=== PATIENT | female | born 1960 | race Caucasian/White ===

== ENCOUNTER → 2018-09-06 | Outpatient (CLI) | payer OTHER ==
[~2018-09-06] MED LIST: BACTRIM DS TAB1 EACH PO; BINOSTO70 MG PO; GENTAMICIN OPH3.5 G1 OPHTHALMIC; KEFLEX500 M1 PO; LIPITOR10 MG PO; PRINIVIL20 MG PO
[2018-09-06 09:03] LABS: CALCIUM 10.5 mg/dL (8.5-10.1); MAGNESIUM 1.9 mg/dL (1.8-2.4); PHOSPHORUS* 3.6 mg/dL (2.5-4.9); POTASSIUM 4.2 mmol/L (3.5-5.1)
[2018-09-06 09:04] LABS: HEMOGLOBIN 14.4 gm/dL (12.0-15.0); NUCLEATED RBCS 0 /100WBC
[2018-09-06 09:06] LABS: ABSOLUTE EOSINOPHILS 0.1 thou/uL (0.0-0.7); ABSOLUTE MONOCYTES 0.5 thou/uL (0.0-1.2); ABSOLUTE NEUTROPHILS 4.4 thou/uL (1.6-8.1); BASOPHILS 0.6 %; EOSINOPHILS 1.8 %; HEMATOCRIT 41.9 % (37.0-47.0); LYMPHOCYTES 16.7 %; MCH 31.6 pg (26.0-34.0); MCHC 34.3 g/dL (28.0-37.0); MONOCYTES 8.7 %; MPV 8.3 fl. (7.2-11.1); PLATELET COUNT* 254 thou/uL (150-400); POLYS 72.2 %; RBC 4.55 mil/uL (4.20-5.00); RDW-CV 13.7 % (10.5-14.5)
[2018-09-06 09:10] LABS: CALCIUM 10.2 mg/dL (8.5-10.1); PHOSPHORUS* 3.7 mg/dL (2.5-4.9)
[2018-09-06 18:10] LABS: IgA 154 mg/dL (87-352); IgG 1104 mg/dL (700-1600); IgM 275 mg/dL (26-217)
[2018-09-08 12:08] LABS: KAPPA FREE LIGHT CHAINS 37.1 mg/L (3.3-19.4); LAMBDA FREE LIGHT CHAINS 30.5 mg/L (5.7-26.3)
== END ==
LOC: M.ULTRA 07:24 → M.LAB 07:24 → M.ULTRA 13:30
PROVIDERS: Internal Medicine
DX: I12.9 Hypertensive chronic kidney disease with stage 1 through stage 4 chronic kidney disease, or unspecified chronic kidney disease (principal); N18.3 Chronic kidney disease, stage 3 (moderate); N28.9 Disorder of kidney and ureter, unspecified

== ENCOUNTER 2018-09-07 14:43 | Emergency (ER) | payer OTHER ==
[~2018-09-07] VITALS: Ht 170.2 cm; Wt 74.8 kg
[2018-09-07] MEDS ORDERED: PRINIVIL20 MG PO (15:06)
[2018-09-07] MEDS ORDERED: LIPITOR10 MG PO (15:06)
[2018-09-07] MEDS ORDERED: BINOSTO70 MG PO (15:06)
[2018-09-07 16:10] LABS: ABSOLUTE EOSINOPHILS 0.1 thou/uL (0.0-0.7); ABSOLUTE MONOCYTES 0.5 thou/uL (0.0-1.2); ABSOLUTE NEUTROPHILS 3.8 thou/uL (1.6-8.1); BASOPHILS 0.6 %; EOSINOPHILS 1.5 %; HEMATOCRIT 39.4 % (37.0-47.0); HEMOGLOBIN 13.3 gm/dL (12.0-15.0); LYMPHOCYTES 18.7 %; MCH 30.9 pg (26.0-34.0); MCHC 33.7 g/dL (28.0-37.0); MCV 91.8 fL (80.0-100.0); MONOCYTES 8.9 %; MPV 7.9 fl. (7.2-11.1); NUCLEATED RBCS 0 /100WBC; PLATELET COUNT* 223 thou/uL (150-400); POLYS 70.3 %; RBC 4.29 mil/uL (4.20-5.00); RDW-CV 13.6 % (10.5-14.5); WBC 5.4 thou/uL (4.0-11.0)
[2018-09-07 16:17] LABS: CALCIUM 9.6 mg/dL (8.5-10.1); CREATININE 0.9 mg/dL (0.6-1.3)
[2018-09-07 16:22] LABS: ALBUMIN 3.2 g/dL (3.4-5.0); TOTAL BILIRUBIN 0.3 mg/dL (<0.1-1.0); TOTAL PROTEIN 7.5 g/dL (6.4-8.2)
[2018-09-07] MEDS ORDERED: GENTAMICIN OPH3.5 G1 OPHTHALMIC (18:32)
[2018-09-07] MEDS ORDERED: BACTRIM DS TAB1 EACH PO (18:32)
[2018-09-07] MEDS ORDERED: KEFLEX500 M1 PO (18:32)
[2018-09-07 18:48] VITALS: BP 124/69
== END 2018-09-07 18:48 | disposition home or self-care (01) ==
LOC: M.ERS 14:43
PROVIDERS: Nurse Practitioner Family
DX: H10.33 Unspecified acute conjunctivitis, bilateral (principal); L03.213 Periorbital cellulitis; R91.1 Solitary pulmonary nodule; I10 Essential (primary) hypertension; F17.200 Nicotine dependence, unspecified, uncomplicated

== ENCOUNTER 2018-09-09 11:49 | Inpatient (IN) | payer OTHER ==
[~2018-09-09] VITALS: Ht 165.1 cm; Wt 72.6 kg
[2018-09-09 12:09] VITALS: BP 111/74
[2018-09-09 12:36] LABS: ABSOLUTE EOSINOPHILS 0.3 thou/uL (0.0-0.7); ABSOLUTE LYMPHOCYTES 0.7 thou/uL (0.8-5.3); ABSOLUTE MONOCYTES 0.2 thou/uL (0.0-1.2); ABSOLUTE NEUTROPHILS 2.9 thou/uL (1.6-8.1); BASOPHILS 0.4 %; EOSINOPHILS 7.7 %; HEMATOCRIT 39.2 % (37.0-47.0); HEMOGLOBIN 13.4 gm/dL (12.0-15.0); LYMPHOCYTES 16.1 %; MCH 31.4 pg (26.0-34.0); MCHC 34.1 g/dL (28.0-37.0); MCV 92.1 fL (80.0-100.0); MONOCYTES 5.6 %; MPV 8.1 fl. (7.2-11.1); NUCLEATED RBCS 0 /100WBC; PLATELET COUNT* 233 thou/uL (150-400); POLYS 70.2 %; RBC 4.25 mil/uL (4.20-5.00); RDW-CV 13.7 % (10.5-14.5); WBC 4.1 thou/uL (4.0-11.0)
[2018-09-09 12:47] LABS: CALCIUM 9.2 mg/dL (8.5-10.1); CREATININE 1.4 mg/dL (0.6-1.3); POTASSIUM 4.1 mmol/L (3.5-5.1)
[2018-09-09 12:52] LABS: TOTAL BILIRUBIN 0.2 mg/dL (<0.1-1.0); TOTAL PROTEIN 7.5 g/dL (6.4-8.2)
[2018-09-09 13:40] VITALS: BP 133/69
[2018-09-09 13:42] VITALS: BP 110/76
[2018-09-09 16:53] VITALS: BP 124/72
[2018-09-09 21:00] VITALS: BP 149/73
[2018-09-10 07:35] VITALS: BP 127/73
[2018-09-10 16:00] VITALS: BP 174/95
[2018-09-10 20:30] VITALS: BP 149/81
[2018-09-11 07:25] VITALS: BP 168/92
[2018-09-11 16:00] VITALS: BP 178/102
[2018-09-11 20:20] VITALS: BP 188/119
--- NOTE | 2018-09-12 07:35 | CON ---
[address] [address] CONSULTATION Name: GLORIA GUERRA Room: [address] [place] .R.#: [id number] Admission: 09/09/18 Attend Phys: Milton Hankins Discharge: Date of : 60 Report #: [id number] THIS REPORT FOR: //name// CC: Adelaide Cerda DATE OF SERVICE: 09/09/2018 INFECTIOUS DISEASE CONSULTATION ATTENDING PHYSICIAN: Dr. Cerda REASON FOR EVALUATION: Periorbital cellulitis. HISTORY OF PRESENT ILLNESS: Chart reviewed, the patient was examined. This is a 58-year-old woman with a history of hypertension who developed an erythrodermic type eruption in bilateral orbits. They are mildly tender, did lead to swelling, had increasing watering as well. She subsequently developed a palpable pruritic type eruption initially on the distal aspects of her upper extremities in more proximal aspects. She denies significant again itching or pain with that. ____ she was evaluated and felt to have an infectious complication. She was given gentamicin eyedrops without benefit. She did follow up with primary care and then in the Emergency Room she was evaluated with multiple images and felt to have a preseptal cellulitis treated with cephalexin and Bactrim. She is not clear if the rash had developed pre- or post-systemic antibiotics due to all the worsening signs and symptoms including the low-grade temperature elevations. She was reevaluated and subsequently admitted. Denies any particular exposure history. Initial blood cultures are sterile thus far. She was empirically started on therapy with vancomycin. ALLERGIES: None. MEDICATIONS: Include vancomycin, given ceftriaxone as well. Additional meds include atorvastatin, lisinopril, alendronate. ALLERGIES: No known drug allergies. PAST MEDICAL HISTORY: Hypertension. SOCIAL HISTORY: Smokes a half pack a day for 20 years. No ethanol. No illicit drug use. FAMILY HISTORY: Noncontributory. REVIEW OF SYSTEMS: Denies any pulmonary or gastrointestinal-related complaints. No sinus issues, no sore throat, no teeth-related complaints. [place] [id number] CONSULTATION Name: GLORIA GUERRA Room: [address] [place] [facility]#: [id number] Admission: 09/09/18 Attend Phys: Milton Hankins Discharge: Date of : 60 Report #: [id number] mild weight increase. PHYSICAL EXAMINATION: GENERAL: She appears ill, although not overtly toxic. VITAL SIGNS: T-max of 99.4, now 98.5; pulse 82; respirations 15; blood pressure is 110/76. SKIN: Warm, dry. HEENT: Remarkable for the edema associated moderate inflammatory signs noted in the periorbital region. Oropharynx is without lesion. Teeth in good repair. NECK: Supple. No adenopathy. LUNGS: Clear to auscultation. HEART: Regular. I do not appreciate any murmur. ABDOMEN: Soft, nontender, nondistended. EXTREMITIES: No cyanosis. There is what appears to be palpable purpura developing on the proximal upper extremities. GENITOURINARY: Deferred. RECTAL: Deferred. LABORATORY DATA: Electrolytes: Sodium 139, potassium 4.2, chloride 103, bicarb is 26, anion gap of 10, BUN and creatinine 25 and 1.0. Estimated GFR 57. CBC: White count 6.0, H and H 14.4 and 41.9, platelets of 254, no eosinophilia and absolute monocyte count of 500. CT sinuses are clear with no significant sinusitis. CT chest PE protocol, no evidence of pulmonary embolus on the scarring, but diffuse bilateral upper lobe predominant emphysematous changes. CT orbits, thin rim enhancing collection in the right preseptal soft tissue superficial to the right globe. Blood cultures sterile thus far. ASSESSMENT AND PLAN: Facial inflammatory eruption somewhat on presentation. She actually has more significant signs and symptoms on the left side spite of the CT changes noted. I think it is perfectly reasonable to continue parenteral therapy to vancomycin and ceftriaxone, do not feel like there are any dental associated issues. The rash could be part and parcel to some sort of systemic infection perhaps viral or may be drug-related adverse drug effect, perhaps to the sulfa depending on the timing, would avoid sulfa at this point. If worsens, could consider biopsy. We will check some autoimmune-type related factors, although she denies any family history of autoimmune disease. It is not clear if she has had any exposure history. <ELECTRONICALLY SIGNED> By: Noé Thacker MD 09/12/18 [id number] Thacker MD /beltran
[2018-09-12 07:40] VITALS: BP 191/97
[2018-09-12 14:26] LABS: CALCIUM 9.1 mg/dL (8.5-10.1); CREATININE 0.9 mg/dL (0.6-1.3); POTASSIUM 3.5 mmol/L (3.5-5.1)
[2018-09-12 16:00] VITALS: BP 177/103
[2018-09-12 20:00] VITALS: BP 168/110
[2018-09-13] VITALS (8 sets, daily range): BP systolic 168; BP diastolic 91
[2018-09-13] MEDS ORDERED: DOXYCYCLINE 10100 MG PO (08:54)
[2018-09-13] MEDS ORDERED: MEDROL2 MG PO (09:38)
== END 2018-09-13 12:38 | disposition home or self-care (01) | DRG 602 ==
LOC: M.ERS 11:49 → M.ORTHSURG 12:41 → M.TBA-ER 12:41 → M.ORTHSURG 13:36
PROVIDERS: Emergency Medicine Emergency Medical Services; Specialist; ADMIT Internal Medicine
PROC: 0HBEXZX Excision of Left Lower Arm Skin, External Approach, Diagnostic (ICD-10-PCS; principal; 2018-09-10)
DX: L03.213 Periorbital cellulitis (principal); N17.0 Acute kidney failure with tubular necrosis; L03.114 Cellulitis of left upper limb; L03.113 Cellulitis of right upper limb; I10 Essential (primary) hypertension; F17.210 Nicotine dependence, cigarettes, uncomplicated; R91.1 Solitary pulmonary nodule; H10.9 Unspecified conjunctivitis; L40.9 Psoriasis, unspecified; E78.5 Hyperlipidemia, unspecified; M35.9 Systemic involvement of connective tissue, unspecified; Z79.899 Other long term (current) drug therapy